=== PATIENT | female | born 1975 | race Caucasian/White ===

== ENCOUNTER → 2017-04-25 | Outpatient (CLI) | payer OTHER ==
[2012-11-05 17:40] VITALS: BP 132/76
[~2017-04-25] MED LIST: FLAXSEED OIL1 CAP PO; ST. JOSEPH81 M2 PO; ZOLOFT 50MG50 MG PO
== END ==
LOC: MAMMO 08:17 → RAD 08:30
DX: Z12.31 Encounter for screening mammogram for malignant neoplasm of breast (principal)

== ENCOUNTER → 2018-06-21 | Outpatient (CLI) | payer OTHER ==
[2012-11-05 17:40] VITALS: BP 132/76
== END ==
LOC: MAMMO 06-13 13:00
DX: N63.0 Unspecified lump in unspecified breast (principal)

== ENCOUNTER → 2018-06-28 | Outpatient (CLI) | payer OTHER ==
[2012-11-05 17:40] VITALS: BP 132/76
== END ==
LOC: MAMMO 13:51
DX: N64.89 Other specified disorders of breast (principal)

== ENCOUNTER → 2019-07-02 | Outpatient (CLI) | payer OTHER ==
[2012-11-05 17:40] VITALS: BP 132/76
== END ==
LOC: MAMMO 09:45
DX: Z12.31 Encounter for screening mammogram for malignant neoplasm of breast (principal)

== ENCOUNTER → 2020-07-01 | Outpatient (CLI) | payer OTHER ==
[2012-11-05 17:40] VITALS: BP 132/76
== END ==
LOC: MAMMO 09:01
DX: Z12.31 Encounter for screening mammogram for malignant neoplasm of breast (principal)

== ENCOUNTER → 2020-07-16 | Outpatient (CLI) | payer OTHER ==
[2012-11-05 17:40] VITALS: BP 132/76
== END ==
LOC: RAD 15:09
DX: H90.5 Unspecified sensorineural hearing loss (principal)
CPT/HCPCS: A9585

== ENCOUNTER → 2021-07-06 | Outpatient (CLI) | payer OTHER | LOC: MAMMO 09:52 | DX: Z12.31 Encounter for screening mammogram for malignant neoplasm of breast (principal); N64.9 Disorder of breast, unspecified ==

== ENCOUNTER → 2021-07-12 | Outpatient (CLI) | payer OTHER | LOC: RAD 06:56 | DX: Z12.31 Encounter for screening mammogram for malignant neoplasm of breast (principal); N60.01 Solitary cyst of right breast ==

== ENCOUNTER → 2023-07-13 | Outpatient (CLI) | payer OTHER | LOC: MAMMO 09:42 | DX: Z12.31 Encounter for screening mammogram for malignant neoplasm of breast (principal) ==

== ENCOUNTER → 2023-10-18 | Outpatient (CLI) | payer OTHER | LOC: VAS 10:10 | DX: M79.662 Pain in left lower leg (principal); D68.51 Activated protein C resistance; D68.59 Other primary thrombophilia; Z86.718 Personal history of other venous thrombosis and embolism ==

== ENCOUNTER → 2024-04-10 | Outpatient (CLI) | payer OTHER | LOC: RAD 13:26 | DX: R51.9 Headache, unspecified (principal) ==